=== PATIENT | male | born 1995 | race Caucasian/White ===

== ENCOUNTER 2017-10-08 11:10 | Emergency (ER) | payer MEDICAID, SELFPAY ==
[2017-10-08 11:13] VITALS: BP 137/87; PULSE 63; RESP 16; TEMP 36.7; O2SAT 99; BMI 31.1
--- NOTE | 2017-10-08 11:45 | ED.VISSUMM ---
- ER Visit Summary Date of Service: 10/08/17 Chief Complaint: [] Hit left side of head yesterday with car door History of Present Illness: The patient is a 22 M [] opening car door hit left side of the head he had no LOC, he complains of persistent pain to the side of his head he has had no nausea vomiting no change in vision no 6 paresthesias he is able go about his normal daily activities he did not take anything for the pain, he presents complaining of the pain he denies any history Physical Examination: [] The very mild contusion to the left forehead region there is no obvious step-off or bony deformity that the TMs are obscured because of wax his nose and throat unremarkable his extra muscles are full central facial bones are nontender his neck is nontender full range of motion lungs clear heart tones normal abdomen soft motor sensory cerebellar gait exam are all negative normal Test Results: [] Emergency Department Course and Treatment: [] I explained to the patient and his family the concept of head injury serious versus less serious, his physical exam findings are really unremarkable as is his neurologic exam this occurred over [address] scan could be done to evaluate for serious head injury I explained the risk of radiation etc. and he deferred that head CT saying he really just wanted something for the pain, he is given Naprosyn here I explained to him he should take [id number] Tylenol or nonsteroidals he has no physician he is referred to the local clinic and will return for change in symptoms head injury instructions given Treatment Plan: [] Disposition: [] Home stable patient declined CT Impression: [] Head injury This note was generated with [employer] dictation software. It may contain incorrect words, spelling, and punctuation that were not noted in review of the chart prior to signing ED Disposition - Plan for ED Patient: Chief Complaint: Head Injury Referrals: Care Physician,No Primary [Primary Care Provider] -
[2017-10-08] MEDS: Naproxen 500 MG Tablet PO (11:47)
--- NOTE | 2017-10-08 11:47 | ED.DEP ---
ED Disposition - Plan for ED Patient: Chief Complaint: Head Injury Instructions: ED Concussion, ED Head Injury Closed Referrals: Care Physician,No Primary [Primary Care Provider] - Analy Menjivar [NON-STAFF] -
[2017-10-08 11:48] VITALS: RESP 15
== END 2017-10-08 12:04 | disposition home or self-care (01) ==
LOC: ED 11:59
PROVIDERS: Emergency Provider Emergency Medicine
DX: S00.83XA Contusion of other part of head, initial encounter (principal); W22.8XXA Striking against or struck by other objects, initial encounter; Y93.9 Activity, unspecified; Y92.9 Unspecified place or not applicable; Y99.9 Unspecified external cause status
CPT/HCPCS: 99282

== ENCOUNTER 2022-05-31 01:45 | Emergency (ER) | payer MEDICAID, SELFPAY ==
[2022-05-31 01:46] VITALS: BP 147/99; PULSE 68; RESP 17; TEMP 36.6; O2SAT 98; BMI 32.6
--- NOTE | 2022-05-31 02:27 | EKG12_ITS ---
Test Reason : CP Blood Pressure : / mmHG Vent. Rate : 067 BPM Atrial Rate : 067 BPM P-R Int : 146 ms QRS Dur : 112 ms QT Int : 392 ms P-R-T Axes : 027 043 049 degrees QTc Int : 414 ms Normal sinus rhythm Normal ECG Confirmed by HAO LIZAMA, ROYER ([id number]), editorial writer IRIS FOREMAN ([id number]) on 06/02/2022 9:33:43 AM Referred By: TL Confirmed By:ROYER BUI MD
--- NOTE | 2022-05-31 02:45 | RAD_ITS ---
INDICATION: chest pain EXAMINATION/TECHNIQUE: X-RAY - XR Chest 2 Views COMPARISON: 07/06/15. FINDINGS: LINES/DEVICES: None. LUNGS: No consolidation, edema or effusion. No pneumothorax. MEDIASTINUM AND CARDIOVASCULAR STRUCTURES: Cardiac silhouette not enlarged. BONES AND SOFT TISSUES: Unremarkable. RAD/Chest PA and Lateral IMPRESSION: No radiographic evidence of acute cardiopulmonary disease. Electronically Signed: Mainor Saini MD at 4:08 EST ,
[2022-05-31 02:55] VITALS: BP 158/98; PULSE 63; RESP 17; O2SAT 97
[2022-05-31 02:56] LABS: Absolute Lymphocyte Count 3.04 X10^3/uL (0.83-4.51); Basophil# 0.05 X10^3/uL; Basophil% 0.7 % (0-1); Eosinophil# 0.37 X10^3/uL; Eosinophils% 5.2 % (0-5); Hematocrit 44.1 % (40-54); Hemoglobin 15.1 g/dL (13.0-16.5); Lymphocyte # 3.04 X10^3/ul (0.83-4.51); Mean Corp Hgb Conc 34.2 g/dL (32-36); Mean Corpuscular Hgb 29.9 pg (27.0-32.0); Mean Corpuscular Volume 87.3 fL (80-94); Mean Platelet Vol. 10.4 fl (6.2-12.0); Monocyte# 0.59 X10^3/uL; Monocyte% 8.3 % (0-10); NRBC Flagged by Analyzer 0 % (0-5); Neutrophil # 3.01 X10^3/uL (2.7-7.7); Neutrophil % 42.7 % (47-70); Platelet Count 210 K/mm3 (150-450); RBC Distribution Width CV 11.6 % (11.6-14.6); RBC Distribution Width SD 36.8 fl (35.1-43.9); Red Blood Count 5.05 M/mm3 (4.6-6.2); White Blood Count 7.1 K/mm3 (4.4-11.0)
--- NOTE | 2022-05-31 02:56 | ED.RN ---
Pt refused IV stating It makes me feel funny. Dr. Taveras notified.
[2022-05-31 03:00] VITALS: BP 131/66; PULSE 86; RESP 24; O2SAT 100
--- NOTE | 2022-05-31 03:08 | EDS_ITS ---
HPI History of Present Illness Chief Complaint: Chest Pain Informant: patient Narrative Narrative: Substernal chest pain with dyspnea waking him at 11:10 PM. Symptoms subsided however currently mild. No recent cough. Asthma history. Chews tobacco. Grandparents with coronary disease. No MIs at a young age. Denies hypertension diabetes or hyperlipidemia. Denies recent travel or surgeries. No history of PE or DVT. States with dyspnea was wheezing at home. Prior Similar Symptoms: No CVD Risk Factors: Negative for Hypertension, Diabetes, Hypercholesterolemia, Family History 1' </=55 or Smoking PE Risk Factors: Negative for Recent Travel/Surgery, Recent Immobilization or Prior DVT or PE [facility] Medical History Asthma Home Medications prednisone 20 mg tablet 40 mg PO DAILY #8 tabs 05/31/22 [Rx Last Taken Unknown] Allergy/AdvReac Type Severity Reaction Status Date / Time No Known Allergies Allergy Verified 05/31/22 01:51 Social History Smoking Status: Never smoker ROS ROS ED Constitutional Constitutional ED: Denies chills, fever(s) or sweats Eyes Eyes: Denies change in vision ENT ENT ED: Denies dysphagia or sore throat Cardiovascular Cardiovascular: Reports chest pain; Denies leg edema, palpitations or racing heartbeat Respiratory/Chest Respiratory/Chest: Reports dyspnea; Denies cough or dyspnea on exertion Gastrointestinal Gastrointestinal: Denies abdominal pain, diarrhea, nausea or vomiting Genitourinary Genitourinary ED: Denies dysuria, hematuria or urinary frequency Musculoskeletal Musculoskeletal: Denies back pain, extremity pain or neck pain Integumentary Denies rash or wounds Neurologic Neurologic: Denies headache(s), paresthesias or weakness EXAM Physical Exam Const Vital Signs: 05/31/22 01:46 05/31/22 01:46 05/31/22 02:29 Temperature 98 F Temperature Source Temporal Pulse Rate 68 Respiratory Rate 17 Respiratory Effort Normal Blood Pressure 147/99 H Blood Pressure Mean 115 Pulse Ox 98 Oxygen Delivery Method Room Air Room Air 05/31/22 02:55 05/31/22 03:00 05/31/22 05:00 Temperature Temperature Source Pulse Rate 63 86 72 Respiratory Rate 17 24 H 18 Respiratory Effort Blood Pressure 158/98 H 131/66 H 112/66 Blood Pressure Mean 118 87 81 Pulse Ox 97 100 100 Oxygen Delivery Method Room Air Room Air Room Air 05/31/22 06:26 Temperature Temperature Source Pulse Rate 65 Respiratory Rate 16 Respiratory Effort Blood Pressure 117/71 Blood Pressure Mean Pulse Ox 100 Oxygen Delivery Method Positive well nourished and well developed General Appearance ED: well developed and NAD HEENT Reports moist mucous membranes normocephalic and atraumatic Eyes PERRL, EOMs intact bilaterally and conjunctivae normal General Eye ED: Yes normal appearance of both eyes Neck no lymphadenopathy and supple General: Negative for tenderness Chest Wall Chest: Negative for tenderness Resp normal respiratory effort and normal air movement Effort and Inspection: symmetric chest movement; Negative for respiratory distress Cardio regular rate, regular rhythm and no murmurs Peripheral Pulses: pulses 2+ throughout GI normal to inspection, nondistended, normoactive bowel sounds and non-tender Palpation: Negative for guarding or rebound tenderness present Back/Spine no CVA tenderness and no thoracic nor lumbar tenderness Extremity normal to inspection General Extremety ED: Negative for edema or tenderness General Extremity: Negative for edema Neuro oriented x3 and no sensory deficits noted Sensorium / Orientation: awake and alert Skin no rashes or lesions noted and no wounds Heart Score History: Slightly/Non-Suspicious ECG: Normal Age: </= 45 years Risk Factors: 1 or 2 Risk Factors Troponin: </= Normal Limit Score: 1 MDM MDM MDM Narrative Medical decision making narrative: Patient EKG with no acute findings. Two-view chest x-ray reviewed by myself read by radiology shows no acute process. Cardiac work-up with troponin x2 were negative. Asthma history reported dyspnea. PERC criteria negative. Albuterol inhaler prednisone started. Symptoms improved in the ED. Discharged outpatient follow-up with return precautions. All questions were answered. Lab Data Attestation: I reviewed the patient's lab results. Labs: Laboratory Results - last 24 hr 05/31/22 05/31/22 05/31/22 02:50 02:50 05:20 WBC 7.1 RBC 5.05 Hgb 15.1 Hct 44.1 MCV 87.3 MCH 29.9 MCHC 34.2 RDW Std Deviation 36.8 RDW Coeff of Rob 11.6 Plt Count 210 MPV 10.4 Immature Gran % (Auto) 0.100 Neut % (Auto) 42.7 L Lymph % (Auto) 43.0 H [place] % (Auto) 8.3 Eos % (Auto) 5.2 H Baso % (Auto) 0.7 Absolute Neuts (auto) 3.0 Absolute Lymphs (auto) 3.04 Nucleated RBC % 0 Sodium 140 Potassium 3.5 Chloride 106 Carbon Dioxide 29.0 Anion Gap 5 BUN 14 Creatinine 0.99 Estim Creat Clear Calc 113.07 Est GFR (MDRD) Af Amer 118 Est GFR (MDRD) Non-Af 97 BUN/Creatinine Ratio 14.2 Glucose 103 Calcium 9.1 Troponin I High Sens 4 5 Radiography Diagnostic Testing: Clinical Impression(s) from Imaging Studies Chest X-Ray 05/31/22 02:45 IMPRESSION: No radiographic evidence of acute cardiopulmonary disease. Electronically Signed: Mainor Saini MD at 4:08 EST , EKG Initial EKG: Attestation: I personally reviewed and interpreted this EKG as follows: Comments: Sinus rate of 67, no ST or T wave changes. Discharge Plan Triage Chief Complaint: Chest Pain ED Provider: Todd Taveras Dx/Rx/DC Orders Clinical Impression: Chest pain, Asthma Instructions: ED Chest Pain, Uncertain Cause, Asthma Prescriptions: New prednisone 20 mg tablet 40 mg PO DAILY Qty: 8 0RF Primary Care Provider: Care Physician,No Primary Referrals: Jayce Rodgers MD [Med Staff - Licensed Life And Health Agent] - 3-5 Days Care Physician,No Primary [Primary Care Provider] - Activity Restrictions/Additional Instructions: Cardiac work-up negative. Chest x-ray negative. Continue your steroids as prescribed. Inhaler 1 to 2 puffs every 4 hours as needed. Follow-up as an outpatient further testing. Return if any worsening symptoms. Disposition Disposition: Home, Self Care Discharge Date/Time: 05/31/22 06:27
[2022-05-31 03:13] LABS: Anion Gap 5 (5-15); BUN 14 mg/dL (7-18); BUN/Creat Ratio 14.2 RATIO (10-20); Calcium,Total 9.1 mg/dL (8.5-10.1); Chloride 106 mmol/L (98-107); Creatinine, Serum 0.99 mg/dL (0.70-1.30); EST Glomerular Filtration Rate 97 mL/min (>60); Est Glom Filt Rate - Afr Amer 118 mL/min (>60); Estimated Creatinine Clearance 113.07 ml/min; Glucose 103 mg/dL (74-106); Potassium 3.5 mmol/L (3.5-5.1); Sodium Level 140 mmol/L (136-145); Troponin-I HS (w/2H Reflex) 4 pg/mL (3.0-78.0)
[2022-05-31 04:54] LABS: Reflex Troponin-HS? (from REC) Y
[2022-05-31 05:00] VITALS: BP 112/66; PULSE 72; RESP 18; O2SAT 100
[2022-05-31] MEDS: predniSONE 20 MG Tablet 40 MG PO (05:19)
[2022-05-31] MEDS: Albuterol Sulfate 8 gm Inhaler (60 puffs) 2 PUFF INHALATION (05:40)
[2022-05-31 05:43] LABS: Troponin-I HS 5 pg/mL (3.0-78.0)
[2022-05-31 06:26] VITALS: BP 117/71; PULSE 65; RESP 16; O2SAT 100
== END 2022-05-31 06:27 | disposition home or self-care (01) ==
PROVIDERS: Emergency Provider Emergency Medicine; Visit Provider Emergency Medicine
DX: R07.9 Chest pain, unspecified (principal); F17.220 Nicotine dependence, chewing tobacco, uncomplicated; J45.909 Unspecified asthma, uncomplicated; Z79.52 Long term (current) use of systemic steroids
CPT/HCPCS: 36415; 71046; 80048; 84484; 85025; 93005; 99284